=== PATIENT | female | born 1960 | race Caucasian/White ===

== ENCOUNTER → 2016-04-06 18:58 | Outpatient (CLI) | payer BC | END | disposition home or self-care (01) | LOC: D.MAMMO 09:00 | DX: R92.8 Other abnormal and inconclusive findings on diagnostic imaging of breast (principal) ==

== ENCOUNTER 2018-01-06 10:24 | Emergency (ER) | payer BC ==
[~2018-01-06] VITALS: Ht 160 cm; Wt 94.1 kg
[2018-01-06 10:34] VITALS: Ht 160 cm; Wt 94.1 kg
[2018-01-06] MEDS ORDERED: AMBIEN5 MG PO (10:36)
[2018-01-06] MEDS ORDERED: IBUPROFEN600 MG PO (10:37)
[2018-01-06] MEDS ORDERED: HYDROCODON-ACE1 EAC7 PO (10:37)
[2018-01-06] MEDS ORDERED: TESSALON PERLE100 MG PO (11:22)
[2018-01-06 11:38] VITALS: BP 132/77
== END 2018-01-06 11:39 | disposition home or self-care (01) ==
LOC: D.ER 10:24
DX: J06.9 Acute upper respiratory infection, unspecified (principal); R05 Cough; R09.82 Postnasal drip